=== PATIENT | female | born 1940 | race Caucasian/White ===

== ENCOUNTER 2017-08-13 08:32 | Emergency (ER) | payer MEDICARE ==
[~2017-08-13] VITALS: Ht 162.6 cm; Wt 75.0 kg
[~2017-08-13 08:32] MED LIST: ATEN-100 PO; LISI-360 PO; MSM500CA PO; NIFE10CA PO; PRIL20CA PO; SIMV80TA OR; SYNT137T PO; VITA400C28 PO
[2017-08-13 08:37] VITALS: BP 194/93; PULSE 76; RESP 18; TEMP 97.6; O2SAT 99
[2017-08-13] MEDS ORDERED: ERGO2000 PO (08:48)
[2017-08-13] MEDS ORDERED: ATEN50TA PO (08:48)
[2017-08-13] MEDS ORDERED: NIFE10CA PO (08:48)
[2017-08-13] MEDS ORDERED: ASCO100029 (08:48)
[2017-08-13] MEDS ORDERED: LISI-515 PO (08:48)
[2017-08-13] MEDS ORDERED: SIMV80TA PO (08:48)
[2017-08-13] MEDS ORDERED: OMEP20TA93 PO (08:48)
[2017-08-13] MEDS ORDERED: TRIA37.5 (08:48)
[2017-08-13] MEDS ORDERED: LEVO88TA2 PO (08:48)
--- NOTE | 2017-08-13 09:16 | PD ---
HPI . Head injury Chief Complaint: Fall Time Seen by Provider: 08:46 Travel History International Travel<30 days: No Contact w/Intl Traveler<30days: No Traveled to known affect area: No History of Present Illness HPI This patient had a trip and fall this morning striking her head and injuring her left arm. She did not have a loss of consciousness. She states that she does not take any blood thinners. Symptoms are very mild. PFSH Past Medical History Hx Anticoagulant Therapy: No Autoimmune Disease: No Cancer: Yes (COLON) Cardiac Catheterization: Yes Cardiovascular Problems: Yes (CO'S, CHOL, HTN) High Cholesterol: Yes Chemotherapy: No Chest Pain: Yes Congestive Heart Failure: Yes Coronary Artery Disease: Yes Diabetes: No Diminished Hearing: No Endocrine: Yes Gastrointestinal Disorders: Yes Genitourinary: No Hiatal Hernia: Yes Hypertension: Yes Immune Disorder: No Inguinal Hernia: Yes (RIGHT GROIN NOT REPAIRED) Implanted Vascular Access Dvce: Yes Musculoskeletal: No Neurologic: No Psychiatric: No Reproductive: No Respiratory: No Myocardial Infarction: Yes (X3) Radiation Therapy: No Thyroid Disease: Yes (HYPO) Menopausal: Yes : 3 Para: 3 Past Surgical History Abdominal Surgery: Yes (COLON CANCER AND STOMACH REPAIR) Body Medical Devices: CARDIAC STENT X 1 Cardiac Surgery: Yes (CATH WITH STENTS) Cholecystectomy: Yes Coronary Stent: Yes (X 2) Gynecologic Surgery: Yes (PARTIAL) Hysterectomy: Yes Oral Surgery: Yes (TONSILS) Other Surgery: Yes Social History Alcohol Use: No Tobacco Use: No Substance Use: No Allergies-Medications (Allergen,Severity, Reaction): Coded Allergies: codeine (Unverified Adverse Reaction, Intermediate, VOMITING, 08/13/17) Reported Meds & Prescriptions Reported Meds & Active Scripts Active Reported Vitamin C (Ascorbic Acid) 1,000 Mg Tablet.er Vitamin D2 (Ergocalciferol) 2,000 Unit Tab 2,000 Units PO DAILY Nifedipine 10 Mg Cap 30 Mg PO DAILY Atenolol 50 Mg Tab 50 Mg PO DAILY Omeprazole 20 Mg Tab 20 Mg PO DAILY Simvastatin 80 Mg Tab 80 Mg PO DAILY Triamterene-Hydrochlorothiazide 37.5-25 Mg Tab 1 Tab DAILY Levothyroxine (Levothyroxine Sodium) 88 Mcg Tab 88 Mcg PO DAILY Lisinopril 20 Mg Tab 20 Mg PO DAILY Review of Systems Except as stated in HPI: all other systems reviewed are Neg Eyes: No: Blurred Vision Neurologic: No: Dizziness, Syncope Physical Exam Narrative GENERAL: Awake and alert and in no acute distress. SKIN: Warm and dry. HEAD: Normocephalic/atraumatic. I cannot find any evidence of injury to her head. EYES: Pupils are equal. Extraocular movements are intact. NECK: Normal range of motion. Nontender. Distally RESPIRATORY: Nonlabored respirations. MUSCULOSKELETAL: Her left shoulder and arm have full range of motion. She is noted to be pulling herself up in the bed using her left arm. She is moving the shoulder freely. There is a bruise just proximal to the left elbow. NEUROLOGICAL: Nonfocal. PSYCHIATRIC: Appropriate mood and affect. Data Data Last Documented VS Vital Signs Date Time Temp Pulse Resp B/P (MAP) Pulse Ox O2 Delivery O2 Flow Rate FiO2 08/13/17 08:37 97.6 76 18 194/93 (126) [address] Brain W/O Iv Contrast(Rout) (08/13/17 08:58) Ribs, Uni (W/Exp Cxr-Min 3vw) (08/13/17 09:54) MDM Medical Decision Making Medical Screen Exam Complete: Yes Emergency Medical Condition: Yes Differential Diagnosis My differential diagnosis of head trauma includes but is not limited to scalp contusion, concussion, intracerebral hemorrhage. Narrative Course This patient presents for the evaluation of injury sustained in a fall. She is complaining of an injury to her head and an injury to her left arm and shoulder area. There is no evidence of fracture or dislocation of the left arm/shoulder as she is moving it freely and using it to pull herself up using the side rails of the bed. I will do a CT of her head. Very low index of suspicion for significant injury. Last Impressions Ribs X-Ray 08/13/17953 Signed Impressions: Service Date/Time: Sunday, August 13, 2017 09:57 - CONCLUSION: 1. Negative left rib series. Cooper Oliver MD Head CT 08/13/1751 Signed Impressions: Service Date/Time: Sunday, August 13, 2017 09:40 - CONCLUSION: 1. No acute findings in the brain. Cooper Oliver MD The plain films were independently viewed by me. Diagnosis Primary Impression: Scalp contusion Qualified Codes: S00.03XA - Contusion of scalp, initial encounter Additional Impression: Contusion of left upper extremity Qualified Codes: S40.022A - Contusion of left upper arm, initial encounter Patient Instructions: Contusion in Adults (DC), General Instructions, RICE Therapy (ED), Scalp Contusion in Adults (ED) Med/Other Pt SpecificInfo: Prescription(s) given Scripts Tramadol (Ultram) 50 Mg Tab 50 MG PO Q4H Y for PAIN, #12 TAB 0 Refills Prov: Luly Houston MD 08/13/17 Disposition: 01 DISCHARGE HOME Condition: Stable Luly Houston MD Aug 13, 2017 09:16
--- NOTE | 2017-08-13 09:53 | RADRPT ---
EXAM DATE/TIME: 08/13/2017 09:40 [facility] COMPARISON: CT BRAIN W/O CONTRAST, November 11, 2011, 14:11. INDICATIONS : Trauma. Trip and fall. RADIATION DOSE: 63.36 CTDIvol (mGy) MEDICAL HISTORY : Carcinoma, colon. Myocardial infarction. Congestive heart failure.Hypertension. SURGICAL HISTORY : Coronary artery stent. Cholecystectomy.Hysterectomy. ENCOUNTER: Initial ACUITY: 1 day PAIN SCALE: 2/10 LOCATION: cranial TECHNIQUE: Multiple contiguous axial images were obtained of the head. Using automated exposure control and adj ustment of the mA and/or kV according to patient size, radiation dose was kept as low as reasonably a chievable to obtain optimal diagnostic quality images. DICOM format image data is available electro nically for review and comparison. FINDINGS: CEREBRUM: The ventricles are normal for age. No evidence of midline shift, mass lesion, hemorrhage or acute in farction. No extra-axial fluid collections are seen. POSTERIOR FOSSA: The cerebellum and brainstem are intact. The 4th ventricle is midline. The cerebellopontine angle i s unremarkable. EXTRACRANIAL: The visualized portion of the orbits is intact. SKULL: The calvaria is intact. No evidence of skull fracture. CONCLUSION: 1. No acute findings in the brain. Cooper Oliver MD on August 13, 2017 at 9:51 Board Certified Radiologist. This report was verified electronically.
--- NOTE | 2017-08-13 10:18 | RADRPT ---
EXAM DATE/TIME: 08/13/2017 09:57 [facility] COMPARISON: No previous studies available for comparison. INDICATIONS : Left lateral rib pain just below the breast post fall this morning. MEDICAL HISTORY : Hypercholesterolemia. Carcinoma, colon. Congestive heart failure. Hypothyroidism. Myocardial infa rction. Hypertension. Coronary artery disease. Hiatial hernia. SURGICAL HISTORY : Tonsillectomy. Cholecystectomy. Hysterectomy. Cardiac cath w/ stent placement. Colon & stomach repair . ENCOUNTER: Initial ACUITY: 1 day PAIN SCORE: 9/10 LOCATION: Left lateral chest FINDINGS: Multiple views of the left ribs were performed. There is no evidence of displaced fracture. No dest ructive lesions or areas of periosteal thickening are seen. Expiratory view of the chest is negative for pneumothorax. The mediastinal structures are midline. CONCLUSION: 1. Negative left rib series. Cooper Oliver MD on August 13, 2017 at 10:15 Board Certified Radiologist. This report was verified electronically.
[2017-08-13] MEDS ORDERED: TRAM50 PO (10:28)
== END 2017-08-13 10:38 | disposition home or self-care (01) ==
LOC: PHED 08:32
DX: S00.03XA Contusion of scalp, initial encounter (principal); S40.022A Contusion of left upper arm, initial encounter; W01.0XXA Fall on same level from slipping, tripping and stumbling without subsequent striking against object, initial encounter; I11.0 Hypertensive heart disease with heart failure; I50.9 Heart failure, unspecified; E78.00 Pure hypercholesterolemia, unspecified; E03.9 Hypothyroidism, unspecified; I25.2 Old myocardial infarction; I25.10 Atherosclerotic heart disease of native coronary artery without angina pectoris
CPT/HCPCS: 70450; 71101; 99284